=== PATIENT | female | born 1935 | race Caucasian/White ===

== ENCOUNTER → 2017-10-17 10:17 | Outpatient (CLI) | payer MEDICARE, OTHER, SELFPAY ==
[2017-10-17 11:40] LABS: Blood Urea Nitrogen 20 mg/dL (7-17); Calcium 9.9 mg/dL (8.4-10.2); Carbon Dioxide 27 mmol/L (22-32); Chloride 104 mmol/L (98-107); Estimated Glomerular Filt Rate > 60.0 mL/min (>60); Glucose 99 mg/dL (80-110); HEMOLYSIS < 15 (0-50); Potassium 4.7 mmol/L (3.4-5.1); Sodium 140 mmol/L (137-145)
== END ==
PROVIDERS: Visit Provider Internal Medicine Cardiovascular Disease
DX: Z51.81 Encounter for therapeutic drug level monitoring (principal); Z79.899 Other long term (current) drug therapy
CPT/HCPCS: 36415; 80048

== ENCOUNTER → 2018-02-14 10:11 | Outpatient (CLI) | payer MEDICARE, OTHER, SELFPAY ==
[2018-02-14 11:17] LABS: BUN Creatinine Ratio 23.8 (6-22); Blood Urea Nitrogen 19 mg/dL (7-17); Calcium 9.5 mg/dL (8.4-10.2); Carbon Dioxide 26 mmol/L (22-32); Chloride 104 mmol/L (98-107); Estimated Glomerular Filt Rate > 60.0 mL/min (>60); Glucose 103 mg/dL (80-110); HEMOLYSIS < 15 (0-50); Sodium 142 mmol/L (137-145)
== END ==
PROVIDERS: Visit Provider Internal Medicine Cardiovascular Disease
DX: Z51.81 Encounter for therapeutic drug level monitoring (principal); Z79.899 Other long term (current) drug therapy
CPT/HCPCS: 36415; 80048

== ENCOUNTER → 2018-03-20 10:07 | Outpatient (CLI) | payer MEDICARE, OTHER, SELFPAY ==
--- NOTE | 2018-03-20 | DI.RAD.S_ITS ---
This blank DEXA report has been sent in error by the PACS system. The correct and complete report will be forthcoming in 1-2 days. Thank you for your patience and understanding. Dictated by: Donnie Duncan M.D. on 03/20/2018 at 12:04 Approved by: Donnie Duncan M.D. on 03/20/2018 at 12:04
== END ==
PROVIDERS: PCP Family Medicine; Visit Provider Family Medicine
DX: M85.88 Other specified disorders of bone density and structure, other site (principal); Z78.0 Asymptomatic menopausal state
CPT/HCPCS: 77080

== ENCOUNTER → 2018-05-21 10:40 | Outpatient (CLI) | payer MEDICARE, OTHER, SELFPAY ==
[2018-05-21 12:04] LABS: BUN Creatinine Ratio 23.8 (6-22); Blood Urea Nitrogen 19 mg/dL (7-17); Calcium 10.1 mg/dL (8.4-10.2); Carbon Dioxide 27 mmol/L (22-32); Chloride 102 mmol/L (98-107); Estimated Glomerular Filt Rate > 60.0 mL/min (>60); Glucose 107 mg/dL (80-110); HEMOLYSIS < 15 (0-50); Potassium 4.5 mmol/L (3.4-5.1); Sodium 139 mmol/L (137-145)
== END ==
PROVIDERS: Visit Provider Internal Medicine Cardiovascular Disease
DX: I25.118 Atherosclerotic heart disease of native coronary artery with other forms of angina pectoris (principal)
CPT/HCPCS: 36415; 80048

== ENCOUNTER → 2018-08-15 09:44 | Outpatient (CLI) | payer MEDICARE, OTHER, SELFPAY ==
[2018-08-15 10:58] LABS: Blood Urea Nitrogen 20 mg/dL (7-17); Calcium 10.3 mg/dL (8.4-10.2); Carbon Dioxide 27 mmol/L (22-32); Chloride 104 mmol/L (98-107); Estimated Glomerular Filt Rate > 60.0 mL/min (>60); Glucose 94 mg/dL (80-110); HEMOLYSIS < 15 (0-50); Sodium 139 mmol/L (137-145)
== END ==
PROVIDERS: PCP Family Medicine; Visit Provider Internal Medicine Cardiovascular Disease
DX: Z51.81 Encounter for therapeutic drug level monitoring (principal); Z79.899 Other long term (current) drug therapy
CPT/HCPCS: 36415; 80048

== ENCOUNTER → 2018-11-14 10:37 | Outpatient (CLI) | payer MEDICARE, OTHER, SELFPAY ==
[2018-11-14 11:21] LABS: BUN Creatinine Ratio 27.1 (6-22); Blood Urea Nitrogen 19 mg/dL (7-17); Calcium 9.8 mg/dL (8.4-10.2); Carbon Dioxide 26 mmol/L (22-32); Chloride 103 mmol/L (98-107); Estimated Glomerular Filt Rate > 60.0 mL/min (>60); Glucose 100 mg/dL (80-110); HEMOLYSIS < 15 (0-50); Potassium 4.3 mmol/L (3.4-5.1); Sodium 138 mmol/L (137-145)
== END ==
PROVIDERS: PCP Family Medicine; Visit Provider Internal Medicine Cardiovascular Disease
DX: I25.118 Atherosclerotic heart disease of native coronary artery with other forms of angina pectoris (principal)
CPT/HCPCS: 36415; 80048

== ENCOUNTER → 2019-02-14 11:11 | Outpatient (CLI) | payer MEDICARE, OTHER, SELFPAY ==
[2019-02-14 12:55] LABS: BUN Creatinine Ratio 24.3 (6-22); Blood Urea Nitrogen 17 mg/dL (7-17); Calcium 9.9 mg/dL (8.4-10.2); Carbon Dioxide 26 mmol/L (22-32); Chloride 102 mmol/L (98-107); Estimated Glomerular Filt Rate > 60.0 mL/min (>60); Glucose 107 mg/dL (80-110); HEMOLYSIS < 15 (0-50); Potassium 4.3 mmol/L (3.4-5.1); Sodium 138 mmol/L (137-145)
== END ==
PROVIDERS: Visit Provider Internal Medicine Cardiovascular Disease
DX: I25.118 Atherosclerotic heart disease of native coronary artery with other forms of angina pectoris (principal)
CPT/HCPCS: 36415; 80048

== ENCOUNTER → 2019-03-18 09:03 | Outpatient (CLI) | payer MEDICARE, OTHER, SELFPAY ==
--- NOTE | 2019-03-18 | DI.RAD.S_ITS ---
PROCEDURE: FL GUIDED PICC PLACEMENT INDICATIONS: LYME DISEASE COMPARISON: None. FINDINGS: PICC was placed by the intravenous therapy team from the right side. Fluoroscopic spot film demonstrates the tip of PICC projecting to the area of the distal SVC. IMPRESSION: Tip of PICC projects to the area of distal SVC. Dictated by: Wil Gil M.D. on 03/18/2019 at 11:44 Approved by: Wil Gil M.D. on 03/18/2019 at 11:44
== END ==
PROVIDERS: Visit Provider Family Medicine
DX: A69.20 Lyme disease, unspecified (principal)
CPT/HCPCS: 36573

== ENCOUNTER → 2019-05-20 09:58 | Outpatient (CLI) | payer MEDICARE, OTHER, SELFPAY ==
[2019-05-20 11:00] LABS: BUN Creatinine Ratio 24.3 (6-22); Blood Urea Nitrogen 17 mg/dL (7-17); Carbon Dioxide 25 mmol/L (22-32); Chloride 103 mmol/L (98-107); Estimated Glomerular Filt Rate > 60.0 mL/min (>60); Glucose 127 mg/dL (80-110); HEMOLYSIS < 15 (0-50); Sodium 139 mmol/L (137-145)
== END ==
PROVIDERS: PCP Family Medicine; Referring Provider Internal Medicine Cardiovascular Disease; Visit Provider Internal Medicine Cardiovascular Disease
DX: I25.118 Atherosclerotic heart disease of native coronary artery with other forms of angina pectoris (principal)
CPT/HCPCS: 36415; 80048

== ENCOUNTER → 2019-05-20 14:30 | Oncology outpatient (ONC) | payer MEDICARE, OTHER, SELFPAY ==
[2019-03-11 14:22] VITALS: BP 165/82; PULSE 84; RESP 16; TEMP 36.8; O2SAT 97
[2019-03-11] MEDS: CEFTRIAXONE 2 GM/50 ML FROZ.PIGGY IV (14:24)
--- NOTE | 2019-03-11 14:57 | PC.NURSE ---
saline lock left in for monday's infusion per pt's request.
[2019-03-13] MEDS: CEFTRIAXONE 2 GM/50 ML FROZ.PIGGY IV (14:08)
[2019-03-13 14:10] VITALS: BP 179/83; PULSE 87; RESP 18; TEMP 37; O2SAT 96
[2019-03-13 14:42] VITALS: BP 155/85; PULSE 76
[2019-03-15] MEDS: CEFTRIAXONE 2 GM/50 ML FROZ.PIGGY IV (14:15)
[2019-03-15 14:17] VITALS: BP 152/81; PULSE 81; RESP 20; TEMP 36.7; O2SAT 98
--- NOTE | 2019-03-15 14:24 | PC.NURSE ---
Pt arrived via home, offers no overt c/o. IV started and med initiated as ordered. Will d/c Iv on completion as Pt states she is going to get a PICC on Monday.
[2019-03-18] MEDS: CEFTRIAXONE 2 GM/50 ML FROZ.PIGGY IV (14:35)
[2019-03-18 15:03] VITALS: BP 168/75; PULSE 80; RESP 16; TEMP 36.9; O2SAT 97
--- NOTE | 2019-03-18 15:33 | PC.NURSE ---
Patient had PICC line placed today by IR. Patient dressing saturated with blood upon arrival to infusion. New PICC line dressing placed for patient with biopatch placed by this RN.
[2019-03-20] MEDS: CEFTRIAXONE 2 GM/50 ML FROZ.PIGGY IV (14:09)
[2019-03-20 15:26] VITALS: BP 166/77; PULSE 73; RESP 16; TEMP 36.7; O2SAT 97
[2019-03-22 14:07] VITALS: BP 160/76; PULSE 78; RESP 16; TEMP 37.1; O2SAT 95
[2019-03-22] MEDS: CEFTRIAXONE 2 GM/50 ML FROZ.PIGGY IV (14:16)
[2019-03-25 14:06] VITALS: BP 141/71; PULSE 76; RESP 18; TEMP 36.9; O2SAT 95
[2019-03-25] MEDS: CEFTRIAXONE 2 GM/50 ML FROZ.PIGGY IV (14:07)
[2019-03-27] MEDS: CEFTRIAXONE 2 GM/50 ML FROZ.PIGGY IV (14:04)
[2019-03-29 14:09] VITALS: BP 152/76; PULSE 82; RESP 20; TEMP 36.5; O2SAT 98
[2019-03-29] MEDS: CEFTRIAXONE 2 GM/50 ML FROZ.PIGGY IV (14:12)
--- NOTE | 2019-03-29 15:44 | PC.NURSE ---
Pt arrived via home, Marah ABX well, Picc patent and intact. Picc saline locked per protocal. Pt heading home.
[2019-04-01] MEDS: CEFTRIAXONE 2 GM/50 ML FROZ.PIGGY IV (14:06)
[2019-04-01 14:11] VITALS: BP 149/84; PULSE 76; RESP 20; TEMP 37.3; O2SAT 98
[2019-04-03 14:25] VITALS: BP 166/75; PULSE 78; RESP 16; TEMP 37; O2SAT 96
[2019-04-03] MEDS: CEFTRIAXONE 2 GM/50 ML FROZ.PIGGY IV (14:42)
[2019-04-05] MEDS: CEFTRIAXONE 2 GM/50 ML FROZ.PIGGY IV (14:03)
[2019-04-05 14:11] VITALS: BP 145/73; PULSE 73; RESP 16; TEMP 37; O2SAT 97
[2019-04-29 14:47] VITALS: BP 144/68; PULSE 73; RESP 16; TEMP 36.8; O2SAT 96
[2019-04-29] MEDS: CEFTRIAXONE 2 GM/50 ML FROZ.PIGGY IV (14:47)
[2019-04-30] MEDS: CEFTRIAXONE 2 GM/50 ML FROZ.PIGGY IV (14:43)
[2019-05-02] MEDS: CEFTRIAXONE 2 GM/50 ML FROZ.PIGGY IV (14:55)
[2019-05-02 15:03] VITALS: BP 141/80; PULSE 79; RESP 18; TEMP 36.3; O2SAT 96
[2019-05-03] MEDS: CEFTRIAXONE 2 GM/50 ML FROZ.PIGGY IV (14:22)
[2019-05-03 14:23] VITALS: BP 141/74; PULSE 85; RESP 18; TEMP 36.6
[2019-05-04] MEDS: CEFTRIAXONE 2 GM/50 ML FROZ.PIGGY IV (14:25)
[2019-05-04 14:26] VITALS: BP 138/65; PULSE 87; RESP 16; TEMP 36.8; O2SAT 99
[2019-05-05 14:31] VITALS: BP 128/51; PULSE 76; RESP 18; TEMP 37.1; O2SAT 97
[2019-05-05] MEDS: CEFTRIAXONE 2 GM/50 ML FROZ.PIGGY IV (14:32)
[2019-05-06] MEDS: CEFTRIAXONE 2 GM/50 ML FROZ.PIGGY IV (14:46)
[2019-05-06 14:50] VITALS: BP 158/77; PULSE 72; RESP 15; TEMP 36.9; O2SAT 94
[2019-05-07] MEDS: CEFTRIAXONE 2 GM/50 ML FROZ.PIGGY IV (15:33)
[2019-05-08] MEDS: CEFTRIAXONE 2 GM/50 ML FROZ.PIGGY IV (15:07)
[2019-05-08 15:14] VITALS: BP 143/79; PULSE 68; RESP 18; TEMP 36.7; O2SAT 98
[2019-05-09 14:45] VITALS: BP 126/67; PULSE 70; RESP 16; TEMP 36.8; O2SAT 94
[2019-05-09] MEDS: CEFTRIAXONE 2 GM/50 ML FROZ.PIGGY IV (14:57)
[2019-05-10 14:34] VITALS: BP 156/76; PULSE 77; RESP 15; TEMP 37.1; O2SAT 96
[2019-05-10] MEDS: CEFTRIAXONE 2 GM/50 ML FROZ.PIGGY IV (14:44)
--- NOTE | 2019-05-10 14:45 | PC.NURSE ---
Nurse Note Patient arrives to floor for infusion alert and oriented. PICC line accessed per orders, VS as charted. Patient denies any questions or concerns prior to infusion. PICC site dressing CDI. Infusion initiated without incident. Care is ongoing.
[2019-05-11] MEDS: CEFTRIAXONE 2 GM/50 ML FROZ.PIGGY IV (14:45)
[2019-05-11 14:47] VITALS: BP 143/76; PULSE 83; RESP 20; TEMP 36.8
--- NOTE | 2019-05-11 14:48 | PC.NURSE ---
Pt arrived via home. Picc accessed per protocal. Picc intact.
[2019-05-12 14:33] VITALS: BP 145/72; PULSE 79; RESP 16; O2SAT 99
[2019-05-12] MEDS: CEFTRIAXONE 2 GM/50 ML FROZ.PIGGY IV (14:39)
[2019-05-13] MEDS: CEFTRIAXONE 2 GM/50 ML FROZ.PIGGY IV (14:31)
[2019-05-14] MEDS: CEFTRIAXONE 2 GM/50 ML FROZ.PIGGY IV (14:28)
[2019-05-14 14:30] VITALS: BP 157/80; PULSE 75; RESP 16; TEMP 36.5; O2SAT 95
[2019-05-15 14:58] VITALS: BP 143/65; PULSE 69; RESP 16; TEMP 36.8; O2SAT 97
[2019-05-15] MEDS: CEFTRIAXONE 2 GM/50 ML FROZ.PIGGY IV (15:08)
[2019-05-16] MEDS: CEFTRIAXONE 2 GM/50 ML FROZ.PIGGY IV (15:02)
[2019-05-16 15:07] VITALS: BP 167/81; PULSE 77; RESP 18; TEMP 36.6; O2SAT 98
[2019-05-17 14:29] VITALS: BP 147/85; PULSE 90; RESP 16; TEMP 37.1; O2SAT 98
[2019-05-17] MEDS: CEFTRIAXONE 2 GM/50 ML FROZ.PIGGY IV (14:30)
--- NOTE | 2019-05-17 15:26 | PC.NURSE ---
Infusion complete/PICC line flushed. Dressing c/d/i. Pt denied assistance with wheelchair, ambulated with cane off of acute care unit. Friend present/walking with pt.
[2019-05-18] MEDS: CEFTRIAXONE 2 GM/50 ML FROZ.PIGGY IV (14:34)
[2019-05-18 14:38] VITALS: BP 136/59; PULSE 78; RESP 18; TEMP 36.4; O2SAT 97
[2019-05-19] MEDS: CEFTRIAXONE 2 GM/50 ML FROZ.PIGGY IV (14:28)
[2019-05-19 14:38] VITALS: BP 162/67; PULSE 78; RESP 18; TEMP 36.8; O2SAT 98
[2019-05-20] MEDS: CEFTRIAXONE 2 GM/50 ML FROZ.PIGGY IV (14:36)
[2019-05-20 14:54] VITALS: BP 152/67; PULSE 76; RESP 16; TEMP 36.8; O2SAT 96
[2019-05-20] MEDS: NEOMYCIN/POLYMYXIN/BACITRA UD OINT 0.9 EACH TOP (15:41)
--- NOTE | 2019-05-20 16:23 | PC.NURSE ---
PICC Removal Verbal MD orders to discontinue PICC line. Removed per protocol with ZHENG Romo. Instructed patient to keep dressing on for 3 days.
== END ==
PROVIDERS: PCP Family Medicine; Visit Provider Family Medicine
DX: A69.20 Lyme disease, unspecified (principal)
CPT/HCPCS: 36573; 36592; 96365; 96366; 96523; J0696; J1642

== ENCOUNTER → 2019-08-16 10:39 | Outpatient (CLI) | payer MEDICARE, OTHER, SELFPAY ==
[2019-08-16 11:44] LABS: BUN Creatinine Ratio 24.3 (6-22); Blood Urea Nitrogen 18 mg/dL (7-17); Carbon Dioxide 25 mmol/L (22-32); Chloride 103 mmol/L (98-107); Estimated Glomerular Filt Rate > 60.0 mL/min (>60); Glucose 114 mg/dL (80-110); HEMOLYSIS < 15 (0-50); Potassium 4.3 mmol/L (3.4-5.1); Sodium 136 mmol/L (137-145)
== END ==
PROVIDERS: PCP Family Medicine; Referring Provider Internal Medicine Cardiovascular Disease; Visit Provider Internal Medicine Cardiovascular Disease
DX: I25.118 Atherosclerotic heart disease of native coronary artery with other forms of angina pectoris (principal)
CPT/HCPCS: 36415; 80048

== ENCOUNTER 2019-10-28 12:41 | Emergency (ER) | payer MEDICARE, OTHER, SELFPAY ==
[2019-10-28] VITALS (8 sets, daily range): BP systolic 175–194; BP diastolic 80–91; PULSE 73–91; RESP 15–27; TEMP 36.9; O2SAT 95–99; BMI 27.1
--- NOTE | 2019-10-28 13:16 | PC.NURSE ---
Reports chest pain gone once arrived at ER. Having 7/10 pain in back, below shoulder blade that has been intermittent for one week and now constant. Worsens with movement.
--- NOTE | 2019-10-28 13:45 | DI.RAD.S_ITS ---
PROCEDURE: XR RIBS RT MIN 3V W CXR 1V INDICATIONS: posterior rib pain TECHNIQUE: 3 views of the right ribs were acquired, along with a single view chest. COMPARISON: [facility], , CHEST 1 VIEW, 09/06/2015, 7:59. FINDINGS: Surgical changes and devices: None. Bones and chest wall: No fractures or dislocations. No suspicious bony lesions. Overlying soft tissues appear unremarkable. Lungs and pleura: No pleural effusions or pneumothorax. Biapical scars. Lungs are pear otherwise clear. Mediastinum: Mediastinal contours appear normal. Heart size is normal. IMPRESSION: No displaced right rib fractures. Dictated by: Connor De Oliveira M.D. on 10/28/2019 at 14:29 Approved by: Connor De Oliveira M.D. on 10/28/2019 at 14:39
--- NOTE | 2019-10-28 13:48 | ED_ITS ---
HPI - Chest Pain General Chief Complaint: Chest Pain Stated Complaint: Chest pain Time Seen by Provider: 10/28/19 13:30 Source: patient Mode of arrival: EMS Limitations: no limitations History of Present Illness HPI narrative: Patient is an 84-year-old female with history of atrial fibrillation status post ablation in non STEMI presenting with right posterior back pain she says it has been beneath her shoulder blade ongoing for the last 1 week. She says it is worse with movement is seems to be pinpoint. She denies any injury or cough. She denies any numbness tingling or weakness in her right hand. She states that she also is having some chest discomfort which is not abnormal for her it is not any worse than what it has been. He denies any shortness of breath. MD complaint: chest pain and other (Right back pain) Related Data Previous Rx's Medication Instructions Recorded hydrocodone-acetaminophen 1 tab PO Q6H PRN #10 tab 10/28/19 Allergies Allergy/AdvReac Type Severity Reaction Status Date / Time ondansetron Allergy Severe WENT INTO Verified 10/28/19 12:47 [From ZOFRAN ( AFIB HYDROCHLORIDE)] hydrochlorothiazide Allergy Mild NEAR Verified 10/28/19 12:47 [HYDROCHLOROTHIAZIDE] SYNCOPE, SOB & TACHYCARDIA ON EXERTION ibuprofen [IBUPROFEN] Allergy Mild PRURITIC Verified 10/28/19 12:47 SKIN RASH naproxen [NAPROXEN] Allergy Mild PRURITIC Verified 10/28/19 12:47 SKIN RASH simvastatin [SIMVASTATIN] Allergy Mild SEVERE Verified 10/28/19 12:47 MYALGIA Sulfa (Sulfonamide Allergy Mild SEVERE Verified 10/28/19 12:47 Antibiotics) FLANK PAIN [SULFA (SULFONAMIDE ANTIBIOTICS)] carvedilol [CARVEDILOL] Allergy Unknown Verified 10/28/19 12:47 lisinopril [LISINOPRIL] Allergy Unknown COUGHING Verified 10/28/19 12:47 SPASM metoprolol [METOPROLOL] Allergy Unknown FATIGUE Verified 10/28/19 12:47 ,WT GAIN CLOTH TAPE Allergy Mild VESICLES Uncoded 07/26/17 13:04 Review of Systems Review of Systems Narrative: GENERAL: Denies chills, fatigue, malaise, fever, sweats, travel HEENT: Denies sinus pain, ear pain, sore throat, difficulty swallowing, neck pain RESPIRATORY: Denies dyspnea, cough, wheezing, hemoptysis, sputum. CARDIOVASCULAR: See HPI GASTROINTESTINAL: Denies nausea, vomiting, abdominal pain, diarrhea, constipation, melena. : Denies dysuria, frequency, incontinence, hematuria, urinary retention, flank pain. MUSCULOSKELETAL: Denies weakness, joint pain, or bony pain SKIN: No rash, no erythema, no pruritus NEUROLOGIC: Denies weakness, dizziness, headache, numbness, change in speech, confusion PSYCHIATRIC: No concerning psychosocial issues. 12 point review of systems is negative except for those stated above and HPI Patient History Medical History Atrial fibrillation (Acute) Non-STEMI (non-ST elevated myocardial infarction) (Acute) Social History Smoking Status: Unknown if ever smoked Smoking Status: Unknown if ever smoked alcohol intake frequency: holidays/special occasions only Substance Use Type: does not use Exam Initial Vital Signs Initial Vital Signs: Vital Signs Temperature 98.5 F 10/28/19 12:47 Pulse Rate 91 H 10/28/19 12:47 Respiratory Rate 27 H 10/28/19 12:47 Blood Pressure 194/91 H 10/28/19 12:47 Pulse Oximetry 99 10/28/19 12:47 GENERAL: Very pleasant alert female appears younger than stated age and in no acute distress. HEENT: Head atraumatic,EOMI, pupils reactive, face symmetric, CARDIOVASCULAR: Regular rate and rhythm without murmurs, rubs or gallops. RESPIRATORY: Breath sounds equal bilaterally, no wheezes rales or rhonchi. Pinpoint tenderness right posterior ribs just beneath the scapula pain is reproducible with palpation and movement no gross bony deformity appreciated no flail chest ABDOMEN: Soft, nontender. Normoactive bowel sounds all 4 quadrants. No guarding or rebound. EXTREMITIES: Normal range of motion, no clubbing or edema. Neurovascularly intact NEUROLOGICAL: Alert and oriented x4.Normal gait and speech. Cranial nerves II through XII grossly intact. SKIN: Warm, dry, no laceration, no petechiae, no rashes or lesions. Course Orders Ordered: ED Orders 10/28/19 12:05 Complete Blood Count AUTO DIFF Stat Comprehensive Metabolic Panel Stat Partial Thromboplastin Time Stat Prothrombin Time INR Stat Troponin & CK Cardiac Panel Stat 10/28/19 13:45 XR ribs RT min 3V w CXR1V Stat Discontinued Medications Morphine Sulfate (Morphine) 4 mg IV NOW ONE Stop: 10/28/19 13:46 Last Admin: 10/28/19 13:52 Dose: 4 mg Documented by: DANAY Vital Signs Vital signs: Vital Signs - 8 hr 10/28/19 12:47 10/28/19 13:00 10/28/19 13:30 Temperature 98.5 F Pulse Rate 87 Respiratory Rate 15 Blood Pressure 194/91 H 190/89 H 181/89 H Pulse Oximetry 99 10/28/19 14:02 10/28/19 14:30 10/28/19 15:00 Temperature Pulse Rate 84 80 75 Respiratory Rate 23 20 Blood Pressure Pulse Oximetry 95 99 98 10/28/19 15:22 10/28/19 15:30 Temperature Pulse Rate 73 Respiratory Rate 18 Blood Pressure 190/86 H 175/80 H Pulse Oximetry 97 MDM - Chest Pain Lab Data Attestation: I reviewed the patient's lab results. Result diagrams: 10/28/19 12:05 10/28/19 12:05 Labs: Lab Results 10/28/19 10/28/19 10/28/19 Range/Units 12:05 12:05 12:05 WBC 4.8 (4.5-11.0) X10^3/uL RBC 4.71 (4.0-5.2) X10^6/uL Hgb 13.6 (12.0-16.0) g/dL Hct 40.2 (36-46) % MCV 85.4 (80-100) fL MCH 28.8 (26-34) PG MCHC 33.8 (30-36) % RDW 13.8 (11.6-14.8) % Plt Count 233 (150-400) X10^3/uL Neut % (Auto) 60.5 (50-75) % Lymph % (Auto) 28.7 (25-40) % Johnston % (Auto) 8.2 (3-14) % Eos % (Auto) 1.8 L (2-4) % Baso % (Auto) 0.8 (0-2) % Neut # (Auto) 2900 (9879-5895) /uL Lymph # (Auto) 1400 (4212-1841) /uL Johnston # (Auto) 400 (0-900) /uL Eos # (Auto) 100 (0-450) /uL Baso # (Auto) 0 (0-100) /uL PT 12.8 H (10.1-12.7) SECONDS INR 1.1 (0.9-1.3) APTT 32 (26.4-36.2) SECONDS Sodium 138 (137-145) mmol/L Potassium 4.1 (3.4-5.1) mmol/L Chloride 106 (98-107) mmol/L Carbon Dioxide 23 (22-32) mmol/L BUN 18 H (7-17) mg/dL Creatinine 0.63 (0.52-1.04) mg/dL Estimated GFR > 60.0 (>60) mL/min BUN/Creatinine Ratio 28.6 H (6-22) Glucose 135 H (80-110) mg/dL Calcium 10.5 H (8.4-10.2) mg/dL Total Bilirubin 0.9 (0.2-1.3) mg/dL AST 37 H (14-36) IU/L ALT 18 (<35) IU/L Alkaline Phosphatase 104 (38-126) U/L Total Creatine Kinase 97 (30-135) U/L CK-MB (CK-2) TNP CK-MB (CK-2) Rel Index TNP Troponin I < 0.012 (0.01-0.034) ng/mL Total Protein 7.5 (6.3-8.2) g/dL Albumin 4.7 (3.5-5.0) g/dL Globulin 2.8 (1.7-4.1) g/dL Albumin/Globulin Ratio 1.7 (1.0-2.8) Imaging Data Chest x-ray: Radiologist's Impression: PROCEDURE: XR RIBS RT MIN 3V W CXR 1V INDICATIONS: posterior rib pain TECHNIQUE: 3 views of the right ribs were acquired, along with a single view chest. COMPARISON: [facility], , CHEST 1 VIEW, 09/06/2015, 7:59. FINDINGS: Surgical changes and devices: None. Bones and chest wall: No fractures or dislocations. No suspicious bony lesions. Overlying soft tissues appear unremarkable. Lungs and pleura: No pleural effusions or pneumothorax. Biapical scars. Lungs are pear otherwise clear. Mediastinum: Mediastinal contours appear normal. Heart size is normal. IMPRESSION: No displaced right rib fractures. Dictated by: Connor De Oliveira M.D. on 10/28/2019 at 14:29 Approved by: Connor De Oliveira M.D. on 10/28/2019 at 14:39 ECG Data Attestation: I personally reviewed and interpreted this ECG as follows: Prior ECG tracings: available for review Interpretation: Normal sinus rhythm rate 80 p.r. interval 160 QRS [address] changes MDM Narrative Medical decision making narrative: The pain is pinpoint reproducible with palpation at this time I believe symptoms are musculoskeletal related rather than cardiac. Troponin and EKG are within normal limits. She is given morphine for pain which does seem to help they will give her prescription for [place]. 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 I think her pain on the right side is musculoskeletal high recommend icing 20-30 minutes at a time. This will continue to be sore for the next 1-2 weeks but should start improving *Continue to take medications as directed [place] 1 tablet every 6 hours if needed for severe pain *Follow up with your primary care provider in 2-3 days *Return to ER if you should have increasing chest pain shortness of breath worsening back pain is or any new, worsening or concerning symptoms CONTROLLED SUBSTANCE DISCHARGE (Narcotoic/benzodiazepine/Flexeril/Phenergan) 1. You have been prescribed narcotic medications, it does have carmela taminophen/Tylenol/paracetamol in it so do not take extra Tylenol or Tylenol containing products TRAMADOL DOES NOT CONTAIN TYLENOL 2. Please understand that we cannot provide further refills of narcotics, benzodiazepines or controlled substances through the ED and her pain management will need to be through your provider. 3. While on these medications you cannot drive or operate heavy machinery. 4. You cannot sign legal documents or perform any duties such as this. 5. As long as you're taking opiate pain medications he should also be taking a stool softener such as Colace, Dulcolax, MiraLAX or prune juice, to help avoid constipation. Prescriptions: New hydrocodone-acetaminophen 5-325 mg tablet 1 tab PO Q6H PRN (Reason: pain) Qty: 10 RF: 0 Referrals: Teddy Goodwin MD [Primary Care Provider] -
[2019-10-28] MEDS: MORPHINE 4 MG/ML INJ IV (13:52)
[2019-10-28 13:54] LABS: Add Manual Diff / Slide Review NO; Basophils Absolute Auto 0 /uL (0-100); Basophils Percent Auto 0.8 % (0-2); Eosinophils Absolute Auto 100 /uL (0-450); Eosinophils Percent Auto 1.8 % (2-4); Hematocrit 40.2 % (36-46); Hemoglobin 13.6 g/dL (12.0-16.0); Lymphocytes Absolute Auto 1400 /uL (1100-4500); Lymphocytes Percent Auto 28.7 % (25-40); Mean Corpuscular HGB Conc 33.8 % (30-36); Mean Corpuscular Hemoglobin 28.8 PG (26-34); Mean Corpuscular Volume 85.4 fL (80-100); Monocytes Absolute Auto 400 /uL (0-900); Monocytes Percent Auto 8.2 % (3-14); Neutrophils Absolute Auto 2900 /uL (1500-7000); Neutrophils Percent Auto 60.5 % (50-75); Platelet Count 233 X10^3/uL (150-400); Red Blood Cell Count 4.71 X10^6/uL (4.0-5.2); Red Cell Distribution Width 13.8 % (11.6-14.8); White Blood Cell Count 4.8 X10^3/uL (4.5-11.0)
[2019-10-28 13:55] LABS: INR 1.1 (0.9-1.3); Prothrombin Time 12.8 SECONDS (10.1-12.7)
[2019-10-28 13:58] LABS: PTT Partial Thromboplastin Tim 32 SECONDS (26.4-36.2)
[2019-10-28 14:04] LABS: Alanine Aminotransferase 18 IU/L (<35); Albumin 4.7 g/dL (3.5-5.0); Albumin Globulin Ratio 1.7 (1.0-2.8); Alkaline Phosphatase 104 U/L (38-126); Aspartate Aminotransferase 37 IU/L (14-36); BUN Creatinine Ratio 28.6 (6-22); Bilirubin Total 0.9 mg/dL (0.2-1.3); Blood Urea Nitrogen 18 mg/dL (7-17); Calcium 10.5 mg/dL (8.4-10.2); Carbon Dioxide 23 mmol/L (22-32); Chloride 106 mmol/L (98-107); Creatine Kinase 97 U/L (30-135); Estimated Glomerular Filt Rate > 60.0 mL/min (>60); Globulin 2.8 g/dL (1.7-4.1); Glucose 135 mg/dL (80-110); HEMOLYSIS < 15 (0-50); Potassium 4.1 mmol/L (3.4-5.1); Sodium 138 mmol/L (137-145); Total Protein 7.5 g/dL (6.3-8.2)
[2019-10-28 14:13] LABS: Troponin I < 0.012 ng/mL (0.01-0.034)
== END 2019-10-28 15:31 | disposition home or self-care (01) ==
PROVIDERS: Emergency Provider Emergency Medicine; PCP Family Medicine
DX: M94.0 Chondrocostal junction syndrome [Tietze] (principal); R07.89 Other chest pain
CPT/HCPCS: 71101; 80053; 82550; 84484; 85025; 85610; 85730; 93005; 96374; 99284; J2270

== ENCOUNTER → 2019-11-13 11:07 | Outpatient (CLI) | payer MEDICARE, OTHER, SELFPAY ==
--- NOTE | 2019-11-13 | DI.MRI.S_ITS ---
PROCEDURE: MR THORACIC SPINE WO CON INDICATIONS: BACK PAIN TECHNIQUE: Noncontrast sagittal T1 spine echo and T2 fast spin echo, sagittal STIR, axial T1 and T2 fast spin echo through the thoracic spine. In this patient, coronal T2-weighted images were also performed. COMPARISON: [facility], , XR RIBS RT MIN 3V W CXR 1V, 10/28/2019, 13:43. [facility], , CHEST 1 VIEW, 09/06/2015, 7:59. FINDINGS: Image quality: This examination is limited by involuntary motion artifact. Alignment and Curvature: Accentuated thoracic kyphosis is seen. No focal AP alignment abnormality is seen. Mild dextroconvex scoliotic curvature is seen. Bone Marrow: Marrow is of normal overall signal. No acute vertebral body compression fractures. Spinal Cord: Visualized spinal cord is normal in size and signal. Paraspinous Soft Tissues: No paravertebral masses. Miscellaneous: Scattered levels of disc space narrowing and endplate irregularity can be seen. Several levels of bridging endplate osteophytes are seen inferiorly. No significant central canal or neural foraminal narrowing can be seen. IMPRESSION: Accentuated thoracic kyphosis and dextroconvex scoliotic curvature. No significant neural foraminal or central canal narrowing can be seen. Age-appropriate bony degenerative changes are seen. Dictated by: Sumeet Ro M.D. on 11/13/2019 at 11:56 Approved by: Sumeet Ro M.D. on 11/13/2019 at 11:58
== END ==
PROVIDERS: PCP Family Medicine; Referring Provider Family Medicine; Visit Provider Family Medicine
DX: M54.6 Pain in thoracic spine (principal); M40.204 Unspecified kyphosis, thoracic region
CPT/HCPCS: 72146

== ENCOUNTER → 2019-12-18 14:25 | Outpatient (CLI) | payer MEDICARE, OTHER, SELFPAY ==
[2019-12-18 16:59] LABS: BUN Creatinine Ratio 25.9 (6-22); Blood Urea Nitrogen 21 mg/dL (7-17); Calcium 9.9 mg/dL (8.4-10.2); Carbon Dioxide 25 mmol/L (22-32); Chloride 104 mmol/L (98-107); Estimated Glomerular Filt Rate > 60.0 mL/min (>60); Glucose 94 mg/dL (80-110); HEMOLYSIS < 15 (0-50); Potassium 5.2 mmol/L (3.4-5.1); Sodium 137 mmol/L (137-145)
== END ==
PROVIDERS: PCP Family Medicine; Referring Provider Nurse Practitioner Acute Care; Visit Provider Nurse Practitioner Acute Care
DX: I25.118 Atherosclerotic heart disease of native coronary artery with other forms of angina pectoris (principal)
CPT/HCPCS: 36415; 80048

== ENCOUNTER → 2020-01-16 10:58 | Outpatient (CLI) | payer MEDICARE, OTHER, SELFPAY ==
[2020-01-16 11:31] LABS: Add Manual Diff / Slide Review NO; Basophils Absolute Auto 100 /uL (0-100); Eosinophils Absolute Auto 100 /uL (0-450); Eosinophils Percent Auto 2.7 % (2-4); Hematocrit 38.8 % (36-46); Lymphocytes Absolute Auto 1200 /uL (1100-4500); Lymphocytes Percent Auto 22.7 % (25-40); Mean Corpuscular HGB Conc 33.5 % (30-36); Mean Corpuscular Hemoglobin 29.1 PG (26-34); Mean Corpuscular Volume 86.7 fL (80-100); Monocytes Absolute Auto 500 /uL (0-900); Monocytes Percent Auto 9.5 % (3-14); Neutrophils Absolute Auto 3300 /uL (1500-7000); Neutrophils Percent Auto 64.1 % (50-75); Platelet Count 219 X10^3/uL (150-400); Red Blood Cell Count 4.47 X10^6/uL (4.0-5.2); Red Cell Distribution Width 15.2 % (11.6-14.8); White Blood Cell Count 5.2 X10^3/uL (4.5-11.0)
[2020-01-16 12:25] LABS: Blood Urea Nitrogen 18 mg/dL (7-17); Carbon Dioxide 27 mmol/L (22-32); Chloride 106 mmol/L (98-107); Estimated Glomerular Filt Rate > 60.0 mL/min (>60); Glucose 113 mg/dL (80-110); HEMOLYSIS < 15 (0-50); Potassium 4.7 mmol/L (3.4-5.1); Sodium 139 mmol/L (137-145)
== END ==
PROVIDERS: PCP Family Medicine; Referring Provider Physical Medicine & Rehabilitation; Visit Provider Physical Medicine & Rehabilitation
DX: M47.814 Spondylosis without myelopathy or radiculopathy, thoracic region (principal); M79.18 Myalgia, other site; R53.83 Other fatigue
CPT/HCPCS: 36415; 80048; 85025

== ENCOUNTER → 2020-01-23 10:16 | Outpatient (CLI) | payer MEDICARE, OTHER, SELFPAY ==
--- NOTE | 2020-01-23 | DI.US.S_ITS ---
PROCEDURE: US ABDOMEN COMPLETE INDICATIONS: ABDOMINAL PAIN TECHNIQUE: Real-time scanning was performed of the abdominal and retroperitoneal organs, with image documentation. COMPARISON: [facility], US, ABDOMEN COMPLETE, 01/04/2014, 1:18. FINDINGS: Liver: Liver is normal in size and homogeneous in echotexture. Gallbladder: The gallbladder is distended but has a normal wall thickness of 1.6 mm. The gallbladder contains numerous mobile stones and some debris in the gallbladder neck. There is no pericholecystic fluid or sonographic Li sign. The largest stone measures about 1.1 cm. Biliary ducts: Intrahepatic bile ducts are non-dilated. Extrahepatic bile duct caliber measures two mm. Normal is 6-7 mm or less in diameter, or 10 mm or less post-cholecystectomy. Pancreas: Visualized portions of the pancreas are sonographically normal. Spleen: Spleen is normal in size and homogeneous in echotexture. Kidneys: Kidneys are normal in size and echotexture. Right kidney measures 11.2 cm long; left kidney measures 10.0 cm long. No hydronephrosis or nephrolithiasis. No solid masses. Aorta: Visualized aorta is normal in caliber at less than 3 cm. Mild abdominal aortic atherosclerotic calcification. Iliacs: Proximal common iliac arteries are normal in caliber at less than 2.5 cm. IVC: Intrahepatic inferior vena cava is patent. Miscellaneous: No free abdominal fluid. IMPRESSION: 1. Cholelithiasis without sonographic evidence of acute cholecystitis. 2. Otherwise normal abdominal ultrasound. Dictated by: Avelina Brandon M.D. on 01/23/2020 at 12:10 Approved by: Avelina Brandon M.D. on 01/23/2020 at 12:14
== END ==
PROVIDERS: PCP Family Medicine; Referring Provider Family Medicine; Visit Provider Family Medicine
DX: R10.9 Unspecified abdominal pain (principal); K80.20 Calculus of gallbladder without cholecystitis without obstruction
CPT/HCPCS: 76700

== ENCOUNTER → 2020-02-05 09:44 | Outpatient (CLI) | payer MEDICARE, OTHER, SELFPAY ==
--- NOTE | 2020-02-05 09:47 | DI.RAD.S_ITS ---
PROCEDURE: FL BARIUM SWALLOW INDICATIONS: Dysphagia COMPARISON: None. FINDINGS: Function: There is delayed and decreased esophageal peristalsis. Spontaneous gastroesophageal reflux is noted to the level of the lower 3rd of the esophagus. Prominent amount of intraluminal debris within the distal esophagus. There is normal transit of a calibrated barium tablet through the esophagus into the stomach. Morphology: Air-contrast images demonstrate normal mucosal morphology. Single contrast views show no esophageal strictures, extrinsic mass effects, or diverticula. Limited images of the stomach demonstrate normal appearance. IMPRESSION: Spontaneous gastroesophageal reflux observed to the level of the lower 3rd of the esophagus Esophageal dysmotility Dictated by: Brock Reza M.D. on 02/05/2020 at 11:30 Approved by: Brock Reza M.D. on 02/05/2020 at 11:31
== END ==
PROVIDERS: PCP Family Medicine; Referring Provider Surgery; Visit Provider Surgery
DX: R13.10 Dysphagia, unspecified (principal); K22.4 Dyskinesia of esophagus; K21.9 Gastro-esophageal reflux disease without esophagitis
CPT/HCPCS: 74220

== ENCOUNTER → 2020-02-24 10:32 | Outpatient (CLI) | payer MEDICARE, OTHER, SELFPAY ==
[2020-02-24 12:56] LABS: COVID19 -Nasal RAPID Negative (Negative)
== END ==
PROVIDERS: PCP Family Medicine; Visit Provider Surgery
DX: R13.10 Dysphagia, unspecified (principal); Z11.59 Encounter for screening for other viral diseases
CPT/HCPCS: 87635; C9803

== ENCOUNTER 2020-02-25 12:42 | Day surgery (SDC) | payer MEDICARE, OTHER, SELFPAY ==
--- NOTE | 2020-02-25 | PATH_ITS ---
[facility] Accession Number: [id number] . 01 Material submitted: . PART A: duodenum - DUODENUM BX PART B: gastrointestinal site - STOMACH BX PART C: esophagus - ESOPHAGUS BX . 01 Clinical history: . EGD . 02 Diagnosis: A. Duodenum, Biopsy: Duodenal mucosa with no diagnostic abnormality. Negative for active inflammation, features of sprue, dysplasia, or malignancy. . B. Stomach, Biopsies: Antral mucosa with no diagnostic abnormality. Negative for Helicobacter by immunohistochemistry. Negative for intestinal metaplasia. Negative for dysplasia and malignancy. . C. Esophagus, Biopsies: Squamocolumnar junctional mucosa with no diagnostic abnormality. Negative for intestinal metaplasia. Negative for dysplasia and malignancy. [facility] 03/02/2020 1433 Local . 02 Electronically signed: . Elissa Neely MD, Pathologist NPI- [id number] . 01 Gross description: . Part A: DUODENUM BX: Received in formalin are 2 fragment(s) of ca, soft tissue measuring 0.1 x 0.1 x 0.1 cm to 0.2 x 0.2 x 0.2 cm submitted entirely in 1 cassette(s) Part B: STOMACH BX: Received in formalin are 2 fragment(s) of ca, soft tissue measuring 0.2 x 0.2 x 0.2 cm to 0.3 x 0.2 x 0.2 cm submitted entirely in 1 cassette(s) Part C: ESOPHAGUS BX: Received in formalin are 2 fragment(s) of ca, soft tissue measuring 0.2 x 0.2 x 0.2 cm to 0.3 x 0.2 x 0.2 cm submitted entirely in 1 cassette(s) /TARUN 02/26/2020 0128 Local . 02 Microscopic: . B. An immunohistochemical stain was performed to evaluate for Helicobacter organisms and is negative. The control stain showed appropriate reactivity. . C. An AB/PAS stain was performed to evaluate for intestinal metaplasia and is negative. The control stain showed appropriate reactivity. . * This test was developed and its performance characteristics determined by [facility]. It has not been cleared or approved by the U.S. Food and Drug Administration. The FDA has determined that such clearance or approval is not necessary. This test is used for clinical purposes. It should not be regarded as investigational or for research. . 02 Pathologist provided ICD-10: R13.10 . 02 CPT . 946523, 231448, 282860, N89494, 335572 Performed at: 01 [facility] [address] [facility], [place], [place] [id number] MD Alexander Quiroz MD Phone: [phone] Performed at: 02 [facility] [address] [place], [place] [id number] MD Elissa Neely MD Phone: [phone]
[2020-02-25 13:42] VITALS: BP 157/70; PULSE 85; RESP 16; TEMP 36.8; O2SAT 98; BMI 26.2
--- NOTE | 2020-02-25 14:12 | PM.PREOP ---
Pre-operative Note COVID-19 COVID-19 status: Negative Result date/Date tested (Pos, Neg/Pending): 02/24/20 Interval Note History & Physical reviewed/Exam performed by Physician: Yes Changes to H&P: No ASA Class (for procedural sedation): III
[2020-02-25] MEDS: fentaNYL 250 MCG/5 ML INJ IV (14:27)
[2020-02-25] MEDS: LIDOCAINE 4% SOLN 50 ML 20 ML TOP (14:30)
[2020-02-25] MEDS: MIDAZOLAM 5 MG/5 ML VIAL IV (14:34)
--- NOTE | 2020-02-25 14:44 | PM.OP.ENDO ---
Operative Date/Time/Diagnoses Date of procedure: 02/25/20 Time of procedure: 14:44 Pre-op diagnosis: Dysphagia Post-op diagnosis: other (Mild gastritis, moderate Hill grade 3 to 4 hiatal hernia, strong contractions of the esophagus, increase translucency of the anterior esophageal wall at 24 cm) Procedure & Clinicians Study performed: Esophagogastroduodenoscopy Procedural sedation performed by the endoscopy Cold forceps biopsy of the duodenum, stomach, and distal esophagus Same procedure as scheduled: Yes Indications: Dysphagia, odynophagia Surgeon: Latasha Casas Procedure Notes SCOAP/Timeout: Performed Procedure in detail: The patient was brought to the room and placed in left lateral decubitus position with all bony prominences padded. A bite block was positioned in the patient's mouth to protect the lips, teeth, and tongue for the procedure. A time-out was performed and then the patient was given procedural sedation starting with [4] mg of Versed and [100] mcg of fentanyl. A total of 5 mg of Versed and 100 micro g of fentanyl were given for the entire procedure. Vitals were monitored throughout the procedure and remained stable. Once adequately sedated, the procedure was begun. The lubricated gastroscope was passed through the bite block and across the tongue and into the esophagus without incident. A tubular view of the esophagus was maintained as the scope was advanced through the esophagus and into the stomach. The scope was advanced through the stomach and to the pylorus. The scope was gently popped through the pylorus and into the duodenal bulb. The scope was flexed and advanced into the second and third portions of the duodenum. The duodenum and duodenal bulb [appeared normal], although there was a moderate amount of bile present. Biopsies were taken. The scope was withdrawn into the stomach. There was some [id number] endoscopic gastritis, and bile present. Biopsies were taken. The scope was retroflexed and the gastric cardia was examined. There was a Hill grade 3-4 hiatal hernia, without any ulcerations. The scope was then straightened, and withdrawn into the esophagus. The Z-line [appeared fairly normal], with a few breaks in it, and a small healing ulcer. No long tongues of salmon-colored mucosa or active bleeding were seen. The distal esophagus was biopsied. The scope was then withdrawn through the esophagus with a tubular view. Powerful contractions were visualized as the scope was withdrawn, almost like a corkscrewing of the esophagus. In the mid esophagus at about 23 cm, there was a thin area on the anterior wall of the esophagus, where mediastinal vessels could be viewed through the wall of the esophagus. No ulceration was seen at this location. No true diverticulum was seen. Pictures were taken. The scope was then withdrawn from the patient the procedure was concluded. The patient tolerated the procedure well and was transferred to the PACU in stable condition. Sedation minutes: 25 Findings: gastritis Specimen(s): other (Biopsies of duodenum, stomach, esophagus) Complications: none Impression: The cause of the patient's pain with swallowing may be attributed to hyper reactivity of the esophagus, bile reflux, or the abnormal area of the esophagus at 24 cm. Given that she had a normal esophagram, we will likely need to proceed with a CT scan of the chest, and pH probe and manometry to ultimately identify the cause of her symptoms. Post-procedure Recommendations: Other recommendation (Depending on biopsy results) Follow up: as needed Disposition: PACU
[2020-02-25 14:46] VITALS: BP 156/71; PULSE 69; RESP 16; TEMP 36.4; O2SAT 95
[2020-02-25 14:51] VITALS: BP 159/71; PULSE 71; RESP 20; O2SAT 96
[2020-02-25 14:56] VITALS: BP 162/85; PULSE 74; RESP 20; O2SAT 96
--- NOTE | 2020-02-25 15:01 | SUR.PHASEI ---
pt talking to Dr. Casas at present . No distress noted.
[2020-02-25 15:02] VITALS: BP 170/82; PULSE 72; RESP 12; TEMP 36.5; O2SAT 96
[2020-02-25 15:35] VITALS: BP 192/84; PULSE 68; RESP 16; TEMP 36.9; O2SAT 98
[2020-02-25 15:47] LABS: Estimated Glomerular Filt Rate > 60.0 mL/min (>60)
== END 2020-02-25 15:42 | disposition home or self-care (01) ==
PROVIDERS: PCP Family Medicine; Referring Provider Family Medicine; Visit Provider Surgery
PROC: 0DJ08ZZ Inspection of Upper Intestinal Tract, Via Natural or Artificial Opening Endoscopic (ICD-10-PCS; CPT 43235; principal; 2020-02-25 13:45)
DX: K44.9 Diaphragmatic hernia without obstruction or gangrene (principal); K29.50 Unspecified chronic gastritis without bleeding
CPT/HCPCS: 43239; 82565; 99152; J2250; J3010

== ENCOUNTER → 2020-03-02 14:36 | Outpatient (CLI) | payer MEDICARE, OTHER, SELFPAY | PROVIDERS: PCP Family Medicine; Referring Provider Family Medicine; Visit Provider Surgery | DX: R13.10 Dysphagia, unspecified (principal) ==

== ENCOUNTER 2020-03-02 22:11 | Emergency (ER) | payer MEDICARE, OTHER, SELFPAY ==
[2020-03-02 22:17] VITALS: BP 136/81; PULSE 92; RESP 22; TEMP 36.7; O2SAT 97
--- NOTE | 2020-03-02 22:32 | ED.GENADULT ---
HPI - General Adult General Chief complaint: Allergic Reaction Stated complaint: SWELLING OF RIGHT ARM FROM CONTRAST Time Seen by Provider: 03/02/20 22:15 Source: patient Mode of arrival: Ambulatory Limitations: no limitations History of Present Illness HPI narrative: Patient is an 85-year-old female who earlier this afternoon had a IV placed [address] scan with contrast. During the injection of the contrast id infiltrated into her right forearm. She stated that afterwards she was here for period of time and had warm compresses placed over the area. She was discharged home with return precautions. Since that time she feels like the area has expanded somewhat and now she has what she describes as a allergic reaction around the area. States that it is intensely itching. Has not tried anything for the symptoms prior to arrival. Related Data Home Medications Medication Instructions Recorded Confirmed acetaminophen 500 mg capsule 500 mg PO BID cap 01/30/20 02/25/20 apixaban 5 mg tablet 5 mg PO BID 01/30/20 02/25/20 beta carotene 25,000 unit capsule 25,000 unit PO 2XW 01/30/20 02/25/20 cholecalciferol (vitamin D3) 10 10 mcg PO DAILY 01/30/20 02/25/20 mcg (400 unit) capsule coenzyme Q10 100 mg capsule 100 mg PO DAILY 01/30/20 02/25/20 diltiazem HCl 180 mg 180 mg PO DAILY 01/30/20 02/25/20 capsule,extended release 24 hr dofetilide 500 mcg capsule 500 mcg PO Q12H 01/30/20 02/25/20 doxycycline hyclate 100 mg 100 mg PO DAILY 01/30/20 02/25/20 tablet,delayed release multivitamin-ferrous 1 tab PO DAILY 01/30/20 02/25/20 fumarate-folic acid 18 mg-400 mcg tablet omega-3 fatty acids 1,000 mg 1,000 mg PO DAILY 01/30/20 02/25/20 capsule pravastatin 40 mg tablet 40 mg PO DAILY 01/30/20 02/25/20 vitamin B comp and C no.3 15 mg-10 1 cap PO DAILY 01/30/20 02/25/20 mg-50 mg-5 mg-300 mg capsule omeprazole 40 mg PO DAILY 02/25/20 02/25/20 Previous Rx's Medication Instructions Recorded prednisone 20 mg PO DAILY 4 Days #4 tab 03/02/20 Allergies Allergy/AdvReac Type Severity Reaction Status Date / Time ondansetron Allergy Severe WENT INTO Verified 02/25/20 13:30 [From ZOFRAN ( AFIB HYDROCHLORIDE)] hydrochlorothiazide Allergy Mild NEAR Verified 02/25/20 13:30 [HYDROCHLOROTHIAZIDE] SYNCOPE, SOB & TACHYCARDIA ON EXERTION ibuprofen [IBUPROFEN] Allergy Mild PRURITIC Verified 02/25/20 13:30 SKIN RASH naproxen [NAPROXEN] Allergy Mild PRURITIC Verified 02/25/20 13:30 SKIN RASH simvastatin [SIMVASTATIN] Allergy Mild SEVERE Verified 02/25/20 13:30 MYALGIA Sulfa (Sulfonamide Allergy Mild SEVERE Verified 02/25/20 13:30 Antibiotics) FLANK PAIN [SULFA (SULFONAMIDE ANTIBIOTICS)] carvedilol [CARVEDILOL] Allergy Unknown Verified 02/25/20 13:30 lisinopril [LISINOPRIL] Allergy Unknown COUGHING Verified 02/25/20 13:30 SPASM metoprolol [METOPROLOL] Allergy Unknown FATIGUE Verified 02/25/20 13:30 ,WT GAIN Review of Systems Constitutional Constitutional: Denies fever(s) Cardiovascular Cardiovascular: Denies chest pain and Denies dyspnea Respiratory Respiratory: Denies dyspnea Gastrointestinal Gastrointestinal: Denies abdominal pain Musculoskeletal Musculoskeletal: Denies arthralgias and Denies myalgias Integumentary/Breasts Comments: Allergic reaction around the site of the injection setting Neurologic Neurologic: Denies behavioral changes Psychiatric Psychiatric: Denies behavioral changes Hematologic/Lymphatic Hematologic/Lymphatic: Denies easy bleeding and Denies easy bruising Allergic/Immunologic Allergic/Immunologic: Reports urticaria Patient History Medical History Atrial fibrillation Hx of cardiac arrhythmia Hx of Lyme disease Non-STEMI (non-ST elevated myocardial infarction) Surgical History Hx of cataract surgery Hx of hysterectomy Hx of laminectomy Hx of shoulder surgery Family History Sister Heart disease Lymphoma Social History marital status: unknown household members: none occupational status: employed Smoking Status: Never smoker alcohol intake: current Smoking Status: Never smoker alcohol intake frequency: holidays/special occasions only Substance Use Type: does not use Exam Initial Vital Signs Initial Vital Signs: Vital Signs Temperature 98.0 F 03/02/20 22:17 Pulse Rate 92 H 03/02/20 22:17 Respiratory Rate 22 03/02/20 22:17 Blood Pressure 136/81 03/02/20 22:17 Pulse Oximetry 97 03/02/20 22:17 Const General: cooperative and comfortable Limitations: mental status not altered Cardio Pulses: radial pulses present on the right Skin Other: The skin over the right antecubital fossa extending approximately 10 cm distal 1 approximately 5 cm proximal to the elbow joint looks like 1 for a large urticaria. There is some mild redness. No blistering. No pustules. No black areas. Neuro Gait: normal gait Sensory Exam: no sensory deficits noted Extrem General: capillary refill normal and No edema Course Orders Ordered: Discontinued Medications Prednisone (Prednisone 20 Mg Tablet) 20 mg PO NOW ONE Stop: 03/02/20 22:33 Last Admin: 03/02/20 22:36 Dose: 20 mg Documented by: Vital Signs Vital signs: Vital Signs - 8 hr 03/02/20 22:17 Temperature 98.0 F Pulse Rate 92 H Respiratory Rate 22 Blood Pressure 136/81 Pulse Oximetry 97 Medical Decision Making MDM Narrative Medical decision making narrative: The compartments and her former soft. She is neurovascularly intact. Does appear that she is having a histamine reaction on the antecubital fossa of the right arm which is where the injection site was. There is no signs of compartment syndrome. Unsure if this histamine reaction is an allergic reaction to the contrast or if it is a reaction to having the contrast in the subcutaneous space and also putting heat in icing compression over the area. There is no signs of anaphylaxis. Will place the patient on a course of steroids. We did discuss the use of topical medications she could use and also oral antihistamines. She was given return precautions and follow-up instructions. She expressed understanding and agreement. Discharge Plan Departure Patient Disposition: Home Clinical Impression: Urticaria at injection site Instructions: DI for Hives Activity Restrictions/Additional Instructions: I do recommend that you take the prednisone as directed. A prescription was electronically transmitted to [place] pharmacy You can also use the topical Benadryl cream or steroid cream like we discussed. This could be purchased [id number]. Contact your primary provider for follow-up. Return to the emergency department for any new or worsening symptoms Prescriptions: New prednisone 20 mg tablet 20 mg PO DAILY 4 Days Qty: 4 RF: 0 No Action apixaban 5 mg tablet 5 mg PO BID RF: 0 dofetilide 500 mcg capsule 500 mcg PO Q12H RF: 0 diltiazem HCl 180 mg capsule,extended release 24hr 180 mg PO DAILY RF: 0 pravastatin 40 mg tablet 40 mg PO DAILY RF: 0 doxycycline hyclate 100 mg tablet,delayed release (DR/EC) 100 mg PO DAILY RF: 0 acetaminophen 500 mg capsule 500 mg PO BID RF: 0 coenzyme Q10 [Co Q-10] 100 mg capsule 100 mg PO DAILY RF: 0 omega-3 fatty acids [Fish Oil Concentrate] 1,000 mg capsule 1,000 mg PO DAILY RF: 0 cholecalciferol (vitamin D3) 10 mcg (400 unit) capsule 10 mcg PO DAILY RF: 0 Centrum Women 18-400 mg-mcg tablet 1 tab PO DAILY RF: 0 beta carotene 25,000 unit capsule 25,000 unit PO 2XW RF: 0 B Complex Plus Vitamin C [id number] mg capsule 1 cap PO DAILY RF: 0 omeprazole 40 mg Capsule,Delayed Release(Dr/Ec) 40 mg PO DAILY RF: 0 Referrals: Sofia Vides MD [Primary Care Provider] -
[2020-03-02] MEDS: predniSONE 20 MG TABLET PO (22:36)
== END 2020-03-02 22:41 | disposition home or self-care (01) ==
PROVIDERS: Emergency Provider Emergency Medicine; PCP Family Medicine
DX: L50.9 Urticaria, unspecified (principal); T78.40XA Allergy, unspecified, initial encounter
CPT/HCPCS: 99281; 99283

== ENCOUNTER → 2020-03-04 13:36 | Outpatient (CLI) | payer MEDICARE, OTHER, SELFPAY ==
--- NOTE | 2020-03-04 | DI.CT.S_ITS ---
PROCEDURE: CT CHEST W CON INDICATIONS: abnormal esophagus wall on EGD; r/o extrinsic compression Additional history: Prior pulmonary vein ablation. TECHNIQUE: After the administration of intravenous contrast, 5 mm thick sections acquired from the pulmonary apices to the posterior costophrenic angles. 1 mm axial lung, 5 mm thick coronal and sagittal reformats and 7 mm axial MIP were acquired. For radiation dose reduction, the following was used: automated exposure control, adjustment of mA and/or kV according to patient size. COMPARISON: [facility], MR, MR THORACIC SPINE WO CON, 11/13/2019, 11:20. [facility], CT, ABDOMEN/PELVIS WITH CONTRAST, 09/06/2015, 8:49. FINDINGS: Image quality: Excellent. Lungs and pleura: No acute air space opacities. Mild biapical pleural scarring. A few areas of distal mucus airway plugging in the upper lobes. Central airways are clear. Right lower lobe subpleural pulmonary nodule measuring 0.4 cm, (3/250), unchanged compared to 2016 suggesting a benign etiology. A few pulmonary nodules measuring 3 mm or less. Minimal dependent atelectasis. No pleural effusions or pneumothorax. Mediastinum: Heart size is normal. Right atrium is unremarkable. Coronary artery calcifications. No pericardial effusion. No mediastinal or hilar adenopathy by size criteria. Thoracic aorta and central pulmonary arteries are normal in size. No aberrant right subclavian artery that would result in it extrinsic compression. No pneumomediastinum. No esophageal mass identified. Esophagus is minimally patulous and gas-filled. Possible tiny hiatal hernia. No enlarged paraesophageal lymph nodes. Bones and chest wall: No suspicious bony lesions. No vertebral body compression fractures. Mild kyphosis. Mild DDD. No axillary or supraclavicular adenopathy by size criteria. Right thyroid nodule measuring 1.3 cm, (5/8). Abdomen: Visualized upper abdominal solid organs appear normal. Upper abdominal bowel loops are normal in caliber. IMPRESSION: 1. No esophageal mass or aberrant subclavian artery to result in extrinsic compression. No pneumomediastinum. 2. A few areas of distal mucus airway plugging. Right lower lobe pulmonary nodule measuring 4 mm is stable since 2016 suggesting a benign etiology. 3. No acute airspace opacity. No pleural effusion. 4. Incidental right thyroid nodule measuring approximately 1.3 cm. -this could be further evaluated with thyroid ultrasound. This is a repeat exam following right antecubital fossa IV infiltration. Right forearm was evaluated by Dr. Fady Glez at the site of prior IV infiltration 2 days prior. There is mild subcutaneous swelling. The skin is soft. No erythema or hives. The patient denied more diffuse hives, shortness of breath, or chest pain after prior IV contrast injection. The patient's questions were answered. Dictated by: Fady Glez M.D. on 03/04/2020 at 14:22 Approved by: Fady Glez M.D. on 03/04/2020 at 14:51
== END ==
PROVIDERS: PCP Family Medicine; Referring Provider Family Medicine; Visit Provider Surgery
DX: E04.1 Nontoxic single thyroid nodule (principal); R13.10 Dysphagia, unspecified
CPT/HCPCS: 71260

== ENCOUNTER → 2020-03-19 14:59 | Outpatient (CLI) | payer MEDICARE, OTHER, SELFPAY ==
[2020-03-19 15:56] LABS: BUN Creatinine Ratio 30.8 (6-22); Blood Urea Nitrogen 24 mg/dL (7-17); Calcium 9.9 mg/dL (8.4-10.2); Carbon Dioxide 28 mmol/L (22-32); Chloride 106 mmol/L (98-107); Estimated Glomerular Filt Rate > 60.0 mL/min (>60); Glucose 138 mg/dL (80-110); HEMOLYSIS < 15 (0-50); Potassium 4.2 mmol/L (3.4-5.1); Sodium 137 mmol/L (137-145)
== END ==
PROVIDERS: PCP Family Medicine; Referring Provider Nurse Practitioner Acute Care; Visit Provider Nurse Practitioner Acute Care
DX: I25.118 Atherosclerotic heart disease of native coronary artery with other forms of angina pectoris (principal); R13.10 Dysphagia, unspecified; I48.20 Chronic atrial fibrillation, unspecified; R07.2 Precordial pain; M54.6 Pain in thoracic spine; I49.8 Other specified cardiac arrhythmias; A69.20 Lyme disease, unspecified; R12 Heartburn; G89.29 Other chronic pain; Z79.01 Long term (current) use of anticoagulants
CPT/HCPCS: 36415; 80048; 99214

== ENCOUNTER → 2020-06-17 10:54 | Outpatient (CLI) | payer MEDICARE, OTHER, SELFPAY ==
[2020-06-17 11:40] LABS: BUN Creatinine Ratio 30.1 (6-22); Blood Urea Nitrogen 22 mg/dL (7-17); Carbon Dioxide 26 mmol/L (22-32); Chloride 105 mmol/L (98-107); Estimated Glomerular Filt Rate > 60.0 mL/min (>60); Glucose 97 mg/dL (80-110); HEMOLYSIS < 15 (0-50); Potassium 4.8 mmol/L (3.4-5.1); Sodium 139 mmol/L (137-145)
== END ==
PROVIDERS: PCP Family Medicine; Referring Provider Nurse Practitioner Acute Care; Visit Provider Nurse Practitioner Acute Care
DX: I25.118 Atherosclerotic heart disease of native coronary artery with other forms of angina pectoris (principal)
CPT/HCPCS: 36415; 80048

== ENCOUNTER → 2020-09-08 12:26 | Outpatient (CLI) | payer MEDICARE, OTHER, SELFPAY ==
--- NOTE | 2020-09-08 14:14 | DI.CT.S_ITS ---
PROCEDURE: CT ABDOMEN PELVIS W CON INDICATIONS: Unspecified abdominal pain TECHNIQUE: After the administration of oral and intravenous contrast, 5 mm thick sections acquired from the diaphragms to the symphysis. 5 mm thick coronal and sagittal reformats were performed. For radiation dose reduction, the following was used: automated exposure control, adjustment of mA and/or kV according to patient size. COMPARISON: [facility], CT, ABDOMEN/PELVIS WITH CONTRAST, 09/06/2015, 8:49. FINDINGS: ABDOMEN: Lung bases: Scattered subsegmental atelectasis and/or scarring. No focal consolidation. Heart: Coronary artery calcifications incidentally noted. Liver: Normal. Gallbladder: Sub 5 mm cholelithiasis again redemonstrated. No other CT evidence of acute cholecystitis. Bile ducts: Normal. Pancreas: Normal. Spleen: Normal. Adrenals: Normal. Kidneys and Ureters: No hydronephrosis. Subcentimeter renal foci, statistically cysts, although technically too small to characterize accurately and therefore nonspecific. Nonobstructive 3 mm right renal calculus is again seen Stomach and duodenum: Normal. Bowel: Large amount of stool is present throughout the colon. The rectum is decompressed. Colonic diverticulosis is seen without evidence of acute complication. Appendix is not clearly identified however no suspicious pericecal inflammatory changes are seen. Other: No free fluid or air. Abdominal nodes: Normal. Aorta and IVC: Normal in size. Scattered vascular calcifications in the aorta Ventral wall: Normal. PELVIS: Bladder: Normal. Inguinal region: No hernia. Pelvic nodes: Normal. Bones: No suspicious bony lesions. No vertebral body compression fractures. Postsurgical changes related to lower lumbar laminectomies. Grade 1 anterolisthesis of L4 on L5. IMPRESSION: Overall, no acute abnormality. Large amount of stool raising possibility of fecal retention or constipation. Incidental colonic diverticulosis. Incidental cholelithiasis. No interval change Nonobstructive right renal calculus as before. Dictated by: Brock Reza M.D. on 09/08/2020 at 15:18 Approved by: Brock Reza M.D. on 09/08/2020 at 15:23
== END ==
PROVIDERS: PCP Family Medicine; Referring Provider Family Medicine; Visit Provider Family Medicine
DX: R10.9 Unspecified abdominal pain (principal); K57.90 Diverticulosis of intestine, part unspecified, without perforation or abscess without bleeding; N20.0 Calculus of kidney; K80.20 Calculus of gallbladder without cholecystitis without obstruction; I25.10 Atherosclerotic heart disease of native coronary artery without angina pectoris
CPT/HCPCS: 74177; Q9967

== ENCOUNTER → 2020-09-17 15:29 | Outpatient (CLI) | payer MEDICARE, OTHER, SELFPAY ==
[2020-09-17 18:17] LABS: BUN Creatinine Ratio 31.1 (6-22); Blood Urea Nitrogen 23 mg/dL (7-17); Carbon Dioxide 22 mmol/L (22-32); Chloride 104 mmol/L (98-107); Estimated Glomerular Filt Rate > 60.0 mL/min (>60); Glucose 94 mg/dL (80-110); HEMOLYSIS < 15 (0-50); Potassium 4.5 mmol/L (3.4-5.1); Sodium 135 mmol/L (137-145)
== END ==
PROVIDERS: PCP Family Medicine; Referring Provider Nurse Practitioner Acute Care; Visit Provider Nurse Practitioner Acute Care
DX: I25.118 Atherosclerotic heart disease of native coronary artery with other forms of angina pectoris (principal)
CPT/HCPCS: 36415; 80048

== ENCOUNTER → 2020-12-16 16:23 | Outpatient (CLI) | payer MEDICARE, OTHER, SELFPAY ==
[2020-12-16 17:56] LABS: BUN Creatinine Ratio 32.5 (6-22); Blood Urea Nitrogen 25 mg/dL (7-17); Calcium 9.5 mg/dL (8.4-10.2); Carbon Dioxide 26 mmol/L (22-32); Chloride 103 mmol/L (98-107); Estimated Glomerular Filt Rate > 60.0 mL/min (>60); Glucose 104 mg/dL (80-110); HEMOLYSIS < 15 (0-50); Potassium 4.6 mmol/L (3.4-5.1); Sodium 137 mmol/L (137-145)
== END ==
PROVIDERS: PCP Family Medicine; Referring Provider Nurse Practitioner Acute Care; Visit Provider Nurse Practitioner Acute Care
DX: I25.118 Atherosclerotic heart disease of native coronary artery with other forms of angina pectoris (principal)
CPT/HCPCS: 80048

== ENCOUNTER → 2021-04-08 13:46 | Outpatient (CLI) | payer MEDICARE, OTHER, SELFPAY ==
[2021-04-08 15:04] LABS: Add Manual Diff / Slide Review NO; Basophils Absolute Auto 0 /uL (0-100); Basophils Percent Auto 0.8 % (0-2); Eosinophils Absolute Auto 0 /uL (0-450); Hemoglobin 12.9 g/dL (12.0-16.0); Lymphocytes Absolute Auto 1400 /uL (1100-4500); Lymphocytes Percent Auto 26.4 % (25-40); Mean Corpuscular HGB Conc 33.8 % (30-36); Mean Corpuscular Hemoglobin 28.9 PG (26-34); Mean Corpuscular Volume 85.5 fL (80-100); Monocytes Absolute Auto 500 /uL (0-900); Monocytes Percent Auto 10.1 % (3-14); Neutrophils Absolute Auto 3200 /uL (1500-7000); Neutrophils Percent Auto 61.7 % (50-75); Platelet Count 213 X10^3/uL (150-400); Red Blood Cell Count 4.45 X10^6/uL (4.0-5.2); Red Cell Distribution Width 13.5 % (11.6-14.8); White Blood Cell Count 5.1 X10^3/uL (4.5-11.0)
[2021-04-08 15:45] LABS: Alanine Aminotransferase 18 IU/L (<35); Albumin 4.4 g/dL (3.5-5.0); Albumin Globulin Ratio 1.8 (1.0-2.8); Alkaline Phosphatase 71 U/L (38-126); Aspartate Aminotransferase 26 IU/L (14-36); BUN Creatinine Ratio 24.4 (6-22); Bilirubin Total 0.9 mg/dL (0.2-1.3); Blood Urea Nitrogen 22 mg/dL (7-17); Calcium 9.8 mg/dL (8.4-10.2); Carbon Dioxide 25 mmol/L (22-32); Chloride 107 mmol/L (98-107); Estimated Glomerular Filt Rate 59.4 mL/min (>60); Globulin 2.4 g/dL (1.7-4.1); Glucose 106 mg/dL (80-110); HEMOLYSIS < 15 (0-50); Magnesium 2.2 mg/dL (1.6-2.3); Potassium 4.3 mmol/L (3.4-5.1); Sodium 139 mmol/L (137-145); Total Protein 6.8 g/dL (6.3-8.2)
[2021-04-08 16:17] LABS: Thyroid Stimulating Hormone 2.43 uIU/mL (0.47-4.68)
== END ==
PROVIDERS: PCP Family Medicine; Referring Provider Nurse Practitioner Acute Care; Visit Provider Nurse Practitioner Acute Care
DX: I48.0 Paroxysmal atrial fibrillation (principal); R00.2 Palpitations; I49.2 Junctional premature depolarization
CPT/HCPCS: 36415; 80053; 83735; 84443; 85025

== ENCOUNTER → 2021-06-25 15:19 | Outpatient (CLI) | payer MEDICARE, OTHER, SELFPAY ==
[2021-06-25 17:47] LABS: BUN Creatinine Ratio 38.9 (6-22); Blood Urea Nitrogen 28 mg/dL (7-17); Calcium 9.7 mg/dL (8.4-10.2); Carbon Dioxide 26 mmol/L (22-32); Chloride 106 mmol/L (98-107); Estimated Glomerular Filt Rate > 60.0 mL/min (>60); Glucose 117 mg/dL (80-110); HEMOLYSIS < 15 (0-50); Potassium 4.8 mmol/L (3.4-5.1); Sodium 138 mmol/L (137-145)
== END ==
PROVIDERS: PCP Family Medicine; Referring Provider Nurse Practitioner Acute Care; Visit Provider Nurse Practitioner Acute Care
DX: I25.118 Atherosclerotic heart disease of native coronary artery with other forms of angina pectoris (principal)
CPT/HCPCS: 36415; 80048

== ENCOUNTER → 2021-09-16 15:41 | Outpatient (CLI) | payer MEDICARE, OTHER, SELFPAY ==
[2021-09-16 17:04] LABS: BUN Creatinine Ratio 33.3 (6-22); Blood Urea Nitrogen 27 mg/dL (7-17); Calcium 9.7 mg/dL (8.4-10.2); Carbon Dioxide 24 mmol/L (22-32); Chloride 105 mmol/L (98-107); Estimated Glomerular Filt Rate > 60 mL/min (>60); Glucose 112 mg/dL (80-110); HEMOLYSIS < 15 (0-50); Magnesium 2.2 mg/dL (1.6-2.3); Potassium 4.6 mmol/L (3.4-5.1); Sodium 137 mmol/L (137-145)
== END ==
PROVIDERS: PCP Family Medicine; Referring Provider Nurse Practitioner Family; Visit Provider Nurse Practitioner Family
DX: Z79.899 Other long term (current) drug therapy (principal); Z51.81 Encounter for therapeutic drug level monitoring
CPT/HCPCS: 36415; 80048; 83735

== ENCOUNTER → 2021-12-09 12:18 | Outpatient (CLI) | payer MEDICARE, OTHER, SELFPAY ==
--- NOTE | 2021-12-09 | DI.US.S_ITS ---
PROCEDURE: US THYROID INDICATIONS: NONTOXIC SINGLE THYROID NODULE TECHNIQUE: Real-time scanning was performed of the thyroid gland, with image documentation. COMPARISON: None. FINDINGS: Right: Thyroid lobe measures 4.3 x 1.9 x 1.8 cm, and is homogeneous in echotexture. Left: Thyroid lobe measures 3.7 x 1.4 x 1.5 cm, and is homogenous in echotexture. Isthmus: 2.6 mm thick. Nodule number: 1 Location: Left superior Size: 0.7 x 0.4 x 0.5 cm. Composition: Spongiform Echogenicity: Isoechoic Shape: wider than tall. Margins: Smooth Echogenic foci: None Total points: 3 ACR TI-RADS category: 3 Nodule number: 2 Location: Right superior Size: 0.4 x 0.2 x 0.5 cm. Composition: Solid Echogenicity: Hyperechoic Shape: wider than tall. Margins: Smooth Echogenic foci: Peripheral Total points: 3 ACR TI-RADS category: 3 Nodule number: 3 Location: Right mid Size: 1.7 x 1.1 x 1.2 cm. Composition: Spongiform Echogenicity: Isoechoic Shape: wider than tall. Margins: Smooth Echogenic foci: None Total points: 3 ACR TI-RADS category: 3 IMPRESSION: Lesions 1 and 2 are considered category 3. Secondary to size, no additional follow-up is recommended. Lesion 3 is considered category 3. Secondary to size, recommend interval follow-up at 1, 3 and 5 years. ACR TI-RADS definitions and recommendations: TI-RADS 1 (benign): 0 points. FNA not needed. TI-RADS 2 (not suspicious): 2 points. FNA not needed. TI-RADS 3 (mildly suspicious): 3 points. * FNA if 2.5 cm or larger, follow up if 1.5 cm or larger (at 1, 3, and 5 years). TI-RADS 4 (moderately suspicious): 4-6 points. * FNA if 1.5 cm or larger, follow up if 1 cm or larger (at 1, 2, 3, and 5 years). TI-RADS 5 (highly suspicious): 7 points or more. * FNA if 1 cm or larger, follow up if 0.5 cm or larger (every year for 5 years). Dictated by: Zo Phan M.D. on 12/09/2021 at 21:05 Transcribed by: RAGHAVENDRA on 12/09/2021 at 21:06 Approved by: Zo Phan M.D. on 12/10/2021 at 15:08
== END ==
PROVIDERS: PCP Family Medicine; Referring Provider Family Medicine; Visit Provider Family Medicine
DX: E04.2 Nontoxic multinodular goiter (principal)
CPT/HCPCS: 76536

== ENCOUNTER → 2023-01-19 15:15 | Outpatient (CLI) | payer MEDICARE, OTHER, SELFPAY ==
--- NOTE | 2023-01-19 | DI.US.S_ITS ---
PROCEDURE: US THYROID INDICATIONS: THYROID NODULE TECHNIQUE: Real-time scanning was performed of the thyroid gland, with image documentation. COMPARISON: [facility], US, US THYROID, 12/09/2021, 12:51. FINDINGS: Right: Thyroid lobe measures 3.6 x 1.8 x 1.8 cm, and is heterogeneous in echotexture. Left: Thyroid lobe measures 3.2 x 1.0 x 1.4 cm, and is heterogeneous in echotexture. Isthmus: 3 mm thick. Nodule number: 1 Location: Left superior pole Size: 0.9 cm cm. Composition: Spongiform ACR TI-RADS category: Benign Nodule number: 2 Location: Right lower pole Size: 1.7 cm. Composition: Spongiform ACR TI-RADS category: Benign Coarse calcification present within the right superior pole. IMPRESSION: No suspicious thyroid nodules. ACR TI-RADS definitions and recommendations: TI-RADS 1 (benign): 0 points. FNA not needed. TI-RADS 2 (not suspicious): 2 points. FNA not needed. TI-RADS 3 (mildly suspicious): 3 points. * FNA if 2.5 cm or larger, follow up if 1.5 cm or larger (at 1, 3, and 5 years). TI-RADS 4 (moderately suspicious): 4-6 points. * FNA if 1.5 cm or larger, follow up if 1 cm or larger (at 1, 2, 3, and 5 years). TI-RADS 5 (highly suspicious): 7 points or more. * FNA if 1 cm or larger, follow up if 0.5 cm or larger (every year for 5 years). Dictated by: Kevin Cano M.D. on 01/19/2023 at 16:51 Approved by: Kevin Cano M.D. on 01/19/2023 at 16:54
== END ==
PROVIDERS: PCP Family Medicine; Referring Provider Family Medicine; Visit Provider Family Medicine
DX: E04.1 Nontoxic single thyroid nodule (principal)
CPT/HCPCS: 76536

== ENCOUNTER → 2024-03-03 14:37 | Outpatient (CLI) | payer MEDICARE, OTHER, SELFPAY ==
--- NOTE | 2024-03-03 14:39 | DI.CT.S_ITS ---
PROCEDURE: CT LUMBAR SPINE WO CON INDICATIONS: persistent pain after fall TECHNIQUE: Noncontrast 3 mm thick sections acquired from the T12 level to the sacrum. Sagittal and coronal reformats were constructed. For radiation dose reduction, the following was used: automated exposure control. COMPARISON: Unavailable for review FINDINGS: Image quality: Diagnostic Bones: There are 6 lumbar type vertebral bodies. On this study, the lower most lumbar type vertebral body is considered a lumbarized S1. 1.3 cm of anterolisthesis of L5 on S1. No definite pars defects identified. There is mild background spondylotic changes. Disc space height loss is most pronounced at L1-L2, with there is trace retrolisthesis. Suspected suspected moderate thecal sac narrowing is seen at this level along with bilateral neural foraminal narrowing. Posterior decompression changes at L4-L5 and L5-S1, no critical stenosis definitely seen elsewhere. No acute appearing vertebral body height loss. Sacroiliac degenerative changes also present. Soft tissues: Suspected nonobstructing renal calculi. Aortic calcifications are present. No aneurysm seen. Increased fecal loading. Colonic diverticula. No definite paravertebral drainable fluid collection. Intra-abdominal structures are not well assessed on this study. IMPRESSION: Degenerative changes as described above. The worst level is L1-L2, with there is thecal sac and neural foraminal narrowing, favored moderate, and trace retrolisthesis. Lower lumbar posterior decompression and anterolisthesis of L5 on S1 also again seen. No acute vertebral body height loss. Please note transitional anatomy described above, confirm numbering prior to any planned interventions. If there is high concern for further derangement, consider MRI evaluation. Dictated by: Emmanuel Mcfarlane M.D. on 03/03/2024 at 18:27 Approved by: Emmanuel Mcfarlane M.D. on 03/03/2024 at 18:32
== END ==
PROVIDERS: PCP Family Medicine; Referring Provider Family Medicine; Visit Provider Family Medicine
DX: M43.17 Spondylolisthesis, lumbosacral region (principal); M54.50 Low back pain, unspecified; M48.061 Spinal stenosis, lumbar region without neurogenic claudication; I70.0 Atherosclerosis of aorta
CPT/HCPCS: 72131

== ENCOUNTER → 2024-06-07 11:19 | Outpatient (CLI) | payer MEDICARE, OTHER, SELFPAY ==
--- NOTE | 2024-06-07 11:20 | DI.US.S_ITS ---
PROCEDURE: US THYROID INDICATIONS: THYROID NODULE TECHNIQUE: Real-time scanning was performed of the thyroid gland, with image documentation. COMPARISON: [facility], US, US THYROID, 01/19/2023, 15:29. FINDINGS: Thyroid: Right lobe measures 4.0 x 1.7 x 2.0 cm. Left lobe measures 3.3 x 1.3 x 1.5 cm. Isthmus is 0.4 cm thick. Echotexture is homogeneous. Nodule number: 1 Location: Left superior pole Size: 0.9 x 0.5 x 0.5 cm, previously 0.9 cm. Composition: Cystic Echogenicity: Anechoic Shape: wider than tall. Margins: Smooth Echogenic foci: Large comet tail Total points: 0 ACR TI-RADS category: Benign Nodule number: 2 Location: Right lower pole Size: 1.3 x 1.1 x 1.1 cm, previously 1.7 cm. Composition: Solid Echogenicity: Isoechoic Shape: wider than tall. Margins: Ill-defined Echogenic foci: None Total points: 3 ACR TI-RADS category: Mildly suspicious IMPRESSION: Right 1.3 cm mildly suspicious thyroid nodule. No further imaging recommended per society guidelines as below. ACR TI-RADS definitions and recommendations: TI-RADS 1 (benign): 0 points. FNA not needed. TI-RADS 2 (not suspicious): 2 points. FNA not needed. TI-RADS 3: 3 points. * FNA if 2.5 cm or larger, follow up if 1.5 cm or larger (at 1, 3, and 5 years). TI-RADS 4: 4-6 points. * FNA if 1.5 cm or larger, follow up if 1 cm or larger (at 1, 2, 3, and 5 years). TI-RADS 5: 7 points or more. * FNA if 1 cm or larger, follow up if 0.5 cm or larger (every year for 5 years). Approved by: Kaitlynn Nassar M.D.,Ph.D. on 06/08/2024 at 0:06
== END ==
PROVIDERS: PCP Family Medicine; Referring Provider Family Medicine; Visit Provider Family Medicine
DX: E04.2 Nontoxic multinodular goiter (principal)
CPT/HCPCS: 76536